=== PATIENT | male | born 2000 | race Two or more races ===

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

== ENCOUNTER 2021-01-03 00:25 | Emergency (ER) | payer MEDICAID ==
[~2021-01-03] VITALS: Ht 147.3 cm; Wt 56.7 kg
[2021-01-03 00:25] VITALS: BP 118/71
[2021-01-03] MEDS ORDERED: AMOX500C2 PO (00:50)
== END 2021-01-03 00:53 | disposition home or self-care (01) ==
LOC: ER 00:27
DX: H65.92 Unspecified nonsuppurative otitis media, left ear (principal); Z98.890 Other specified postprocedural states; Z79.899 Other long term (current) drug therapy

== ENCOUNTER 2021-01-11 21:41 | Emergency (ER) | payer MEDICAID ==
[~2021-01-11] VITALS: Ht 149.9 cm; Wt 56.7 kg
[~2021-01-11 21:41] MED LIST: AMOX500C2 PO
[2021-01-11 21:56] VITALS: BP 131/91
--- NOTE | 2021-01-11 22:03 | NUR ---
PATIENT CAME TO ER BED 10 C/O CHEST PAIN BIB MOTHER. PATIENT HX OF HEART SURGERY AT 5 MONTHS OLD. PATIENT IS AAOX4. PATIENT CURRENTLY DENIES ANY CHEST PAIN. PATIENT IS BREATHING EVENLY AND UNLABORED ON ROOM AIR .CONNECTED TO THE LAY OUT INSPECTOR.
--- NOTE | 2021-01-11 22:59 | NUR ---
Patient discharged to home in stable condition. Written and verbal after care instructions given. Patient verbalizes understanding of instruction.
== END 2021-01-11 23:01 | disposition home or self-care (01) ==
LOC: ER 21:45
DX: R07.89 Other chest pain (principal); Q90.9 Down syndrome, unspecified; Z98.890 Other specified postprocedural states; Z79.899 Other long term (current) drug therapy
CPT/HCPCS: 71045-TC

== ENCOUNTER 2021-06-08 15:31 | Emergency (ER) | payer MEDICAID ==
[~2021-06-08] VITALS: Ht 154.9 cm; Wt 68.0 kg
--- NOTE | 2021-06-08 15:57 | NUR ---
er provider at bedside for eval.
[2021-06-08] MEDS ORDERED: IV NS 0.9% 1,000 ML BAG IV ONE (16:00)
[2021-06-08 16:13] LABS: BILIRUBIN,URINE SMALL (NEGATIVE); COLOR,URINE YELLOW (YELLOW); LEUKOCYTE ESTERASE ,URINE Negative (NEGATIVE); NITRITE, URINE Negative (NEGATIVE); PH,URINE 5.5 (5.0-8.0); PROTEIN,URINE Trace mg/dl (NEGATIVE); UGLUCOSE Negative (NEGATIVE); UROBILINOGEN,URINE 0.2 EU/dL (0.2)
[2021-06-08 16:23] LABS: BACTERIA,URINE Few /HPF (None Seen); RBC,URINE 0-2 /HPF (0-2); SQUAMOUS EPITHELIAL CELL,UR Few /HPF (None Seen); WBC,URINE 0-2 /HPF (0-3)
[2021-06-08 16:24] LABS: MUCUS,URINE Moderate /LPF (None Seen)
--- NOTE | 2021-06-08 16:25 | NUR ---
patient to radiology for abdominal ct scan via gurney.
[2021-06-08 16:27] LABS: BASOPHILS % (AUTO) 0.4 % (0.0-2.0); EOSINOPHILS % (AUTO) 0.5 % (0.0-6.0); HEMATOCRIT 52 % (39-51); HEMOGLOBIN 17.4 g/dL (13.5-17.5); LYMPHOCYTES # (AUTO) 2.1 K/uL (0.8-4.8); MEAN CORPUSCULAR HGB CONC 34 g/dl (31.0-36.0); MEAN CORPUSCULAR VOLUME 97 fL (80-96); MONOCYTES # (AUTO) 0.6 K/uL (0.1-1.30); NEUTROPHILS # (AUTO) 4.8 K/uL (1.8-8.9); NEUTROPHILS % (AUTO) 63.1 % (43.0-81.0); PLATELET COUNT (AUTO) 259 K/uL (150-450); RED BLOOD CELL COUNT(AUTO) 5.32 MIL/uL (4.5-6.0); WHITE BLOOD COUNT (AUTO) 7.6 K/uL (4.3-11.0)
[2021-06-08 16:39] LABS: CALCIUM, SERUM 8.9 mg/dL (8.5-10.1); CREATININE 1.1 mg/dL (0.6-1.3)
[2021-06-08] MEDS ORDERED: KETOROLAC TROMETHAMINE INJ 30 MG/ML VIAL IV ONE (17:30)
[2021-06-08] MEDS ORDERED: KETOROLAC TROMETHAMINE 15 MG/ML VIAL ONE (17:49)
[2021-06-08 17:53] LABS: ALBUMIN 3.9 g/dL (3.4-5.0); BILIRUBIN,DIRECT 0.2 mg/dL (0.0-0.2); BILIRUBIN,TOTAL 0.8 mg/dL (0.2-1.0)
[2021-06-08 18:24] VITALS: BP 128/80
--- NOTE | 2021-06-08 18:24 | NUR ---
Patient discharged to home in stable condition. Written and verbal after care instructions given. Patient verbalizes understanding of instruction.IV removed. Catheter intact and site benign. Pressure and 4x4 applied to site. No bleeding noted.
== END 2021-06-08 18:25 | disposition home or self-care (01) ==
LOC: ER 15:33
DX: R10.31 Right lower quadrant pain (principal); Q90.9 Down syndrome, unspecified; E86.0 Dehydration; E03.9 Hypothyroidism, unspecified; Z98.890 Other specified postprocedural states; Z79.899 Other long term (current) drug therapy
CPT/HCPCS: 36415; 74176; 80048; 80076; 81001; 83690; 85025; 96361; 96374; 99284; J1885; J7030

== ENCOUNTER 2022-09-13 11:53 | Emergency (ER) | payer MEDICAID ==
[~2022-09-13] VITALS: Ht 157.5 cm; Wt 59.0 kg
--- NOTE | 2022-09-13 12:20 | NUR ---
TO ER BED 01, BIB MOTHER C/O FEVER, COUGH, DIARRHEA, VOMITTING X 2 DAYS, AMBULATORY, CONNECTED TO MONITOR, AWAITING MD ORDERS
[2022-09-13] MEDS ORDERED: ACETAMINOPHEN ES 500 MG TABLET ONE (13:25)
[2022-09-13] MEDS ORDERED: ACETAMINOPHEN ES 500 MG TABLET PO ONE (13:30)
[2022-09-13] MEDS ORDERED: IV NS 0.9% 1,000 ML BAG IV ONE (13:30)
--- NOTE | 2022-09-13 13:55 | NUR ---
COVID, STREP, AND FLU SWABS DONE AND SENT
[2022-09-13 14:23] LABS: BASOPHILS % (AUTO) 0.7 % (0.0-2.0); HEMATOCRIT 48 % (39-51); HEMOGLOBIN 15.7 g/dL (13.5-17.5); LYMPHOCYTES # (AUTO) 1.1 K/uL (0.8-4.8); LYMPHOCYTES % (AUTO) 15.4 % (20.0-44.0); MEAN CORPUSCULAR HGB CONC 33 g/dl (31.0-36.0); MEAN CORPUSCULAR VOLUME 95 fL (80-96); MONOCYTES # (AUTO) 0.9 K/uL (0.1-1.30); MONOCYTES % (AUTO) 12.6 % (2.0-12.0); NEUTROPHILS % (AUTO) 71.3 % (43.0-81.0); PLATELET COUNT (AUTO) 187 K/uL (150-450)
[2022-09-13 14:59] LABS: BILIRUBIN,URINE 1+ (NEGATIVE); COLOR,URINE YELLOW (YELLOW); LEUKOCYTE ESTERASE ,URINE NEGATIVE (NEGATIVE); NITRITE, URINE NEGATIVE (NEGATIVE); PH,URINE 5.5 (5.0-8.0); PROTEIN,URINE TRACE mg/dl (NEGATIVE); UGLUCOSE NEGATIVE (NEGATIVE); UROBILINOGEN,URINE 0.2 EU/dL (0.2)
[2022-09-13 15:03] LABS: CALCIUM, SERUM 8.6 mg/dL (8.5-10.1); CREATININE 1.3 mg/dL (0.6-1.3); POTASSIUM 3.9 mmol/L (3.5-5.1)
[2022-09-13] MEDS ORDERED: ONDA4TAB5 PO (15:37)
[2022-09-13 15:42] LABS: RBC,URINE 0-2 /HPF (0-2); SQUAMOUS EPITHELIAL CELL,UR 0-2 /HPF (None Seen); WBC,URINE 0-2 /HPF (0-3)
[2022-09-13 15:43] LABS: BACTERIA,URINE 1+ /HPF (None Seen); MUCUS,URINE Moderate /LPF (None Seen)
--- NOTE | 2022-09-13 15:56 | NUR ---
Brianna agosto in ED - 09/13/22 at 1557 by TRIXIE Patient discharged to home in stable condition. Written and verbal after care instructions given. Parent verbalizes understanding of instruction.
--- NOTE | 2022-09-13 15:58 | NUR ---
Patient discharged to home in stable condition. Written and verbal after care instructions given. Family verbalizes understanding of instruction.
[2022-09-13 15:59] VITALS: BP 103/52
[2022-09-13 20:16] LABS: BAND % (MANUAL) 2 % (0.0-5.0); LYMPHOCYTES % (MANUAL) 9 % (16-48); MONOCYTES % (MANUAL) 6 % (0-11.0); NEUTROPHILS % (MANUAL) 83 (42-76)
== END 2022-09-13 15:59 | disposition home or self-care (01) ==
LOC: ER 12:15
DX: B34.9 Viral infection, unspecified (principal); R11.2 Nausea with vomiting, unspecified; Z20.822 Contact with and (suspected) exposure to COVID-19; Q90.9 Down syndrome, unspecified
CPT/HCPCS: 99284; 96360; 71045; 87426; 87804; 85025; 80048; 81001; 36415; 87880; 85007; J7030; C9803; 86403-TC

== ENCOUNTER 2022-10-11 16:01 | Emergency (ER) | payer MEDICAID ==
[~2022-10-11] VITALS: Ht 149.9 cm; Wt 59.0 kg
[~2022-10-11 16:01] MED LIST changes: +ONDA4TAB5 PO
[2022-10-11 16:38] VITALS: BP 109/60
--- NOTE | 2022-10-11 17:45 | NUR ---
CALLED TO TRIAGE,NO ANSWER
--- NOTE | 2022-10-11 18:00 | NUR ---
CALLED TO TRIAGE,NO ANSWER
--- NOTE | 2022-10-11 18:30 | NUR ---
CALLED TO TRIAGE,NO ANSWER
== END 2022-10-11 19:01 | disposition left against medical advice (07) ==
LOC: ER 16:03
DX: Z53.21 Procedure and treatment not carried out due to patient leaving prior to being seen by health care provider (principal)